=== PATIENT | female | born 1970 | race Caucasian/White ===

== ENCOUNTER 2022-07-02 14:22 | Inpatient (IN) | payer MEDICAID ==
[~2022-07-02] VITALS: Ht 157.5 cm; Wt 72.6 kg
[2022-07-02] MEDS ORDERED: ACETAMINOPHEN 325 MG TABLET PO ONE (15:00)
[2022-07-02] MEDS ORDERED: ACETAMINOPHEN 325 MG TABLET ONE (15:08)
[2022-07-02 15:25] LABS: HEMATOCRIT 42.7 % (31.2-41.9); MEAN CORPUSCULAR VOLUME 84.8 fL (75.5-95.3); PLATELET COUNT (AUTO) 408 K/uL (179-408)
[2022-07-02 15:33] LABS: CREATININE 0.9 mg/dL (0.6-1.3); POTASSIUM 3.9 mmol/L (3.5-5.1)
[2022-07-02 15:38] LABS: BILIRUBIN,DIRECT 0.1 mg/dL (0.0-0.2); BILIRUBIN,TOTAL 0.4 mg/dL (0.2-1.0)
[2022-07-02 16:13] LABS: *BILIRUBIN,URIN NEGATIVE (NEGATIVE); *BLOOD, URINE NEGATIVE (NEGATIVE); *CLARITY,URINE CLEAR (CLEAR); *COLOR,URINE YELLOW (YELLOW); *KETONES,URINE 1+ (NEGATIVE); LEUKOCYTE ESTERASE ,URINE NEGATIVE (NEGATIVE); NITRITE, URINE NEGATIVE (NEGATIVE); PH,URINE 7.5 (5.0-8.0); UGLUCOSE NEGATIVE (NEGATIVE)
[2022-07-02 16:39] LABS: *URINE HCG, QUAL NEGATIVE (NEGATIVE)
[2022-07-02 16:56] LABS: WBC,URINE NONE SEEN /HPF (0-3)
[2022-07-02 16:57] LABS: BACTERIA,URINE FEW /HPF (NONE SEEN); RBC,URINE NONE SEEN /HPF (0-3); SQUAMOUS EPITHELIAL CELL,UR FEW /HPF (NONE SEEN)
[2022-07-02] MEDS ORDERED: PIPERACILLIN SODIUM/TAZOBACTAM 3.375 G in IV DEXTROSE 5% 50 ML IV ONE (17:15)
[2022-07-02] MEDS ORDERED: PIPERACILLIN/TAZOBACTAM/D5W 50 ML IV ONE (17:46)
[2022-07-02] MEDS ORDERED: REMEDY ESSENTIAL ZINC PASTE 113 GM TP PRN (18:15)
[2022-07-02] MEDS ORDERED: ACETAMINOPHEN 325 MG TABLET PO PRN (18:15)
--- NOTE | 2022-07-02 18:17 | NUR ---
Lavonne red in EDM - 07/02/22 at 1819 by PANKAJ pt no longer requiring ativan or seroquel IV, pt not aggitated at this time and Inocencia SILVA raul labs. pt resting comfortably in bed, watching tv and eating dinner.
[2022-07-02] MEDS ORDERED: ONDA4TAB5 PO (18:38)
[2022-07-02] MEDS ORDERED: OMEP20TA20 PO (18:38)
[2022-07-02] MEDS ORDERED: METH-817 PO (18:38)
--- NOTE | 2022-07-02 19:25 | NUR ---
handoff report given to Leandra SILVA, pt in stable condition.
--- NOTE | 2022-07-02 20:10 | NUR ---
CALLED [facility] FOR PAIN MANAGEMENT SPOKED WITH LUBA SIMON AWARE ABOUT THE PAIN , PER MD SHE IS ON METHADONE MANAGEMENT SHE CAN ONLY TAKE TYLENOL .SPOKED WITH PATIENT AT B/S AND MADE HER AWARE AND SHE SAID TYLENOL IS FINE . GIVEN TYLENOL PRN FOR PAIN SEE EMAR .
--- NOTE | 2022-07-02 22:20 | NUR ---
COVID RESULT IS NEGATIVE ,MOVED PATIENT TO THE 3RD FLOOR .
[2022-07-02 22:40] VITALS: BP 155/69
[2022-07-02] MEDS: IV 1/2NS 1000 ML 1,000 ML IV PRN (22:46)
[2022-07-02] MEDS: ONDANSETRON 4 MG/2 ML VIAL IV PRN (23:16)
[2022-07-03] MEDS ORDERED: PIPERACILLIN SODIUM/TAZO 3.375 GM VIAL ONE (00:37)
[2022-07-03] MEDS: PIPERACILLIN SODIUM/TAZOBACTAM 3.375 G in IV DEXTROSE 5% 100 ML IV SCH ×3 (01:01→18:16)
[2022-07-03] MEDS ORDERED: PIPERACILLIN SODIUM/TAZOBACTAM 4.5 G in IV DEXTROSE 5% 50 ML IV SCH (02:00)
[2022-07-03 04:38] VITALS: BP 114/53
[2022-07-03] MEDS: ONDANSETRON 4 MG/2 ML VIAL IV PRN (05:09)
[2022-07-03] MEDS: PANTOPRAZOLE SODIUM 40 MG TABLET.DR PO SCH (06:12)
[2022-07-03 07:19] LABS: MEAN CORPUSCULAR VOLUME 85.1 fL (75.5-95.3); PLATELET COUNT (AUTO) 398 K/uL (179-408)
[2022-07-03 07:37] LABS: BILIRUBIN,TOTAL 0.6 mg/dL (0.2-1.0); CREATININE 0.9 mg/dL (0.6-1.3); MAGNESIUM 2.1 mg/dL (1.8-2.4); POTASSIUM 3.7 mmol/L (3.5-5.1); TOTAL PROTEIN, SERUM 8.3 g/dL (6.4-8.2)
[2022-07-03] MEDS: METHADONE HCL 10 MG TABLET PO SCH (10:02)
--- NOTE | 2022-07-03 11:03 | NUR ---
0730-Patient tolerated clear liquids diet well, no n/v at this time. Oral fluids offered as oliva. and taken well. Patient denies any pain, A/Ox4. 0930-Due medications, administered/orally as scheduled/ordered, no ASE noted. 1000-IV ATB therapy administered as ordered, iv site intact and infusing well. Patient denies any discomfort. 1100-IV ATB therapy in prog. oliva. well, no ASE noted, oral fluids taken well.
[2022-07-03 11:35] VITALS: BP 103/58
[2022-07-03 16:00] VITALS: BP 99/49
[2022-07-03] MEDS: IV 1/2NS 1000 ML 1,000 ML IV PRN (18:25)
--- NOTE | 2022-07-03 18:43 | NUR ---
Patient alert and oriented, verbalizes needs and follows directions. Patient denied any break out pain/pain. On routine methadone. With BRP, assisted patient to the resthroom X5 and voided freely. No c/o any bladder discomfort, N/V. Patient continues on clear liq.diet and tolerated well.\ Patient was seen by MD Ortiz, per MD patient is stable, no procedures scheduled at this time; will continue with same treatment plan.
[2022-07-03 20:00] VITALS: BP 115/68
[2022-07-04] MEDS: PIPERACILLIN SODIUM/TAZOBACTAM 3.375 G in IV DEXTROSE 5% 100 ML IV SCH ×2 (01:02→10:24)
[2022-07-04 04:00] VITALS: BP 119/52
[2022-07-04] MEDS: PANTOPRAZOLE SODIUM 40 MG TABLET.DR PO SCH (06:11)
[2022-07-04 06:22] LABS: MEAN CORPUSCULAR HEMOGLOBIN 28.2 uug (24.7-32.8); MEAN CORPUSCULAR VOLUME 85.7 fL (75.5-95.3); PLATELET COUNT (AUTO) 331 K/uL (179-408)
[2022-07-04] MEDS: IV 1/2NS 1000 ML 1,000 ML IV PRN (06:27)
--- NOTE | 2022-07-04 07:22 | NUR ---
Rec'd patient in bed, asleep, able to wake up, no C/O pain, no SOB/use of accessory muscles. Safety measures in place, call light in working mode. Cont. on IVF/ATB as ordered, no ASE noted. Oral fluids taken well.
[2022-07-04 07:25] LABS: BILIRUBIN,TOTAL 0.5 mg/dL (0.2-1.0); PHOSPHOROUS 3.9 mg/dL (2.5-4.9); TOTAL PROTEIN, SERUM 7.1 g/dL (6.4-8.2)
[2022-07-04] MEDS: METHADONE HCL 10 MG TABLET PO SCH (08:54)
[2022-07-04 11:36] VITALS: BP 112/61
--- NOTE | 2022-07-04 14:38 | NUR ---
Patient was seen by Dr. Ortiz with orders to discharge patient today (07/04/22) to [id number] [facility] [address] [place] [address] Ortiz may transfer prescription to patient's pharmacy of choice: [facility] [id number] [place] [address] tel. , orders noted and carried out.
[2022-07-04] MEDS ORDERED: METR500T PO (15:32)
[2022-07-04] MEDS ORDERED: LEVO500T90 PO (15:32)
[2022-07-04] MEDS ORDERED: ONDA4TAB5 PO (15:32)
[2022-07-04] MEDS ORDERED: HYDR-4209 PO (15:32)
[2022-07-04 16:00] VITALS: BP 119/60
--- NOTE | 2022-07-04 17:23 | NUR ---
4:45PM-Patient was discharge home, discharge teaching provided with good verbal understanding. All belongings given and taken. Patient checked herself out, she is A/Ox4, self responsible.
== END 2022-07-04 16:45 | disposition home or self-care (01) ==
LOC: ER 14:22 → MEDSURG3 21:27
PROVIDERS: ADMIT Internal Medicine; ATTEND Internal Medicine
DX: K80.00 Calculus of gallbladder with acute cholecystitis without obstruction (principal); M33.10 Other dermatomyositis, organ involvement unspecified; E66.9 Obesity, unspecified; G62.9 Polyneuropathy, unspecified; K59.09 Other constipation; M79.7 Fibromyalgia; Z20.822 Contact with and (suspected) exposure to COVID-19; Z79.891 Long term (current) use of opiate analgesic; K57.30 Diverticulosis of large intestine without perforation or abscess without bleeding; Z68.29 Body mass index [BMI] 29.0-29.9, adult
CPT/HCPCS: 36415; 83690; 83735; 84100; 84703; 85025; 87040; A4663; G0378; J2405; J2543